=== PATIENT | male | born 1950 | race Caucasian/White ===

== ENCOUNTER 2023-02-17 11:06 | Day surgery (SDC) | payer MEDICARE, SELFPAY ==
[2023-02-17] VITALS (8 sets, daily range): BP systolic 130–193; BP diastolic 68–95; PULSE 69–95; RESP 16–20; TEMP 36.9; O2SAT 95–100; BMI 22.2
--- NOTE | 2023-02-17 | HP_ITS ---
Date:? 02/17/2023 CHIEF COMPLAINT:? Food impaction. HISTORY OF PRESENT ILLNESS:? Patient is a 72-year-old male presented to the emergency room this morning with a food impaction that began at 9:00 p.m. last night.? He was eating chicken and it got lodged in his lower esophagus.? He has been able to swallow some saliva but no liquids or food since that time.? Denies any shortness of breath.? Does have a history of a similar episode several years ago, but he was able to bring the food up at that time.? He has had a remote EGD and reportedly had a hiatal hernia.? He has had several colonoscopies that have been unremarkable as well.? Denies any abdominal surgery other than inguinal hernia repair.? He denies aspirin or nonsteroidal anti-inflammatory drug use.? SOCIAL HISTORY:? He does not smoke.? Denies alcohol or illicit drug use.? ALLERGIES:? He has no known drug allergies.? MEDICATIONS:? He does report that he takes anti-anxiety medication, Ativan p.r.n., as well as metoprolol.? REVIEW OF SYSTEMS:? Ten system review of systems is negative for recent weight loss or weight gain.? Denies increased fatigue or light-headedness.? Has had no earache or tinnitus.? No sinus congestion.? No sore throat or hoarseness.? No chest pain, palpitations or syncope.? No chronic cough, shortness of breath, hemoptysis.? No abdominal pain, nausea and vomiting.? No diarrhea, constipation, decreased caliber of the stools.? No melena, hematochezia or bright red blood per rectum.? No dysuria, frequency, urgency or hematuria.? No headaches, seizures or tremors.? No easy bruising or bleeding.? No heat or cold intolerance.? No polydipsia, polyphagia or polyuria. PHYSICAL EXAM:? VITAL SIGNS:? Patient is afebrile.? Vital signs are stable. HEENT:? Normocephalic, atraumatic.? Sclerae anicteric.? Conjunctiva not injected.? Oral mucosa is moist without lesions. NECK:? Supple.? There is no adenopathy, thyromegaly or JVD. LUNGS:? Clear bilaterally.? CARDIAC EXAM:? Regular rhythm and rate without appreciable murmurs, rubs or gallops. ABDOMEN:? Soft, non-tender, non-distended.? There are masses, hepatosplenomegaly or hernias.? No CVA tenderness.? SKIN:? Warm and dry without lesions, rashes or ulcers. NEURO EXAM:? Non-focal.? Non-lateralizing.? LABORATORY VALUES:? Within normal limits. IMAGING:? Patient did have a CT scan of the neck and chest by the emergency room which revealed a food bolus in the distal esophagus.? No inflammatory changes or perforation. ASSESSMENT:? A 72-year-old with distal esophageal food bolus.? PLAN:? The plan is to proceed with EGD under general anesthesia with removal and/or reduction of the food bolus.? Indications, risks, benefits, alternatives of proceeding were explained extensively to the patient, including the risks of bleeding, aspiration, esophageal/gastric perforation or anesthetic complications.? All of his questions were answered.? Informed consent was obtained. CC:? Bella Sierra
--- NOTE | 2023-02-17 | OP_ITS ---
OPERATION DATE: ??02/17/2023 PREOPERATIVE DIAGNOSIS:? Food impaction. POSTOPERATIVE DIAGNOSIS:? Food impaction with distal esophageal impaction of chicken. PROCEDURE:? EGD with removal and reduction of food bolus. SURGEON:? Torito Zimmerman M.D. ANESTHESIA:? General endotracheal per Dr. Hastings. ESTIMATED BLOOD LOSS: Zero. INDICATIONS AND CONSENT:? Patient is a 72-year-old male with a food impaction in the distal esophagus since 9:00 p.m. last night, which was confirmed by the emergency room with CT scan.? Indications, risks, benefits, alternatives of proceeding with EGD under general anesthesia were explained extensively to the patient, including the risks of bleeding, aspiration, esophageal/gastric perforation or anesthetic complications.? All of his questions were answered.? Informed consent was obtained. PROCEDURE:? Patient was brought to the operating room, placed in the supine position.? General anesthesia was induced.? He was then placed in the left lateral decubitus position.? Bite block was placed in the patient?s mouth.? Scope was inserted into the oropharynx.? Under direct visualization, it was advanced into the esophagus, past the cricopharyngeus, down to the distal esophagus, where a large piece of chicken was found to be obstructing the distal esophagus.? This was unable to be reduced.? Biopsy forceps were used to break up pieces and remove some of the pieces.? Larger chunks that were made mobile were then removed with the [employer].? Once it had been adequately broken up, it was able to be irrigated down into the stomach.? There was noted to be a tortuous distal esophagus with a bend as well as spasm and edema and some esophagitis.? There was no bleeding.? There was a small, sliding type hiatal hernia.? The remainder of the esophagus was unremarkable.? Some small pieces of chicken that had been brought out into the oropharynx were removed as well, after the scope was removed.? Patient tolerated procedure well, was extubated and sent to recovery room in good condition. CC:? Bella Sierra
[2023-02-17] MEDS: GLUCAGON 1 MG/ML VIAL IV (11:30)
--- NOTE | 2023-02-17 11:44 | ED_ITS ---
HPI - General Adult General Chief complaint: Abdominal Pain Stated complaint: FOOD CAUGHT IN THROAT Time Seen by Provider: 02/17/23 11:18 Source: patient Mode of arrival: walk-in Limitations: no limitations History of Present Illness HPI narrative: The patient is coming to the ER with a an incidental food impaction in his lower part of the esophagus and he mentioned that the food seems is stuck in his chest area The patient denies any difficulty breathing or any difficulty speaking and this incident happened yesterday at 9 PM he is presenting today around 11 AM The patient is not able to drink any water since then and he mentioned that it was a piece of chicken with no bone and it The patient had 1 incident few years ago when he had to have the Heimlich maneuver after a choking incident The patient denies any other complaints Related Data Allergies Allergy/AdvReac Type Severity Reaction Status Date / Time No Known Drug Allergies Allergy Verified 02/17/23 11:17 Review of Systems ROS Status of ROS 10 or more systems reviewed and unremarkable except as noted in history and below PFSH PFS Social History Smoking status: Never smoker Exam Narrative Exam Narrative: Nurses notes and vital signs reviewed and patient is not hypoxic. General: Well-appearing and in no apparent distress. Skin: Warm, dry, no pallor noted. No rash. Head: Normocephalic, atraumatic. Neck: Supple, non-tender. Eye: Pupils are equal, round and EOMI. No scleral icterus. Ears, Nose, Mouth, and Throat: TM are clear, no nasal mucosal hypertrophy. Oral mucosa is moist, no posterior oropharynx erythema, uvula is mid-line Cardiovascular: Regular Rate and Rhythm without murmur, gallop or rub. Respiratory: No accessory muscle use or respiratory distress. Lungs are clear to auscultation, no wheezing, rales or rhonchi Chest Wall: no tenderness Back: No midline thoracic or lumbar vertebral tenderness. No CVA tenderness Musculoskeletal: normal ROM, no calf or popliteal tenderness, no lower extremity edema/swelling GI: Abdomen is soft, non-distended. Normal bowel sounds. No masses appreciated. No tenderness to palpation. No rebound, guarding, or rigidity noted. Neurological: A&O x4. No cranial nerve dysfunction observed. No truncal ataxia. Moves all extremities. Sensation intact. Psychiatric: Cooperative and interactive. Normal mood and affect. Constitutional Vital Signs, click to edit/add: Last Vital Signs Temp 98.5 F 02/17/23 11:13 Pulse 84 02/17/23 15:10 Resp 16 02/17/23 15:10 BP 130/68 02/17/23 15:10 Pulse Ox 97 02/17/23 15:10 O2 Del Method Room Air 02/17/23 11:13 Course Vital Signs Vital signs: Vital Signs Temperature 98.5 F 02/17/23 11:13 Pulse Rate 95 H 02/17/23 11:13 Respiratory Rate 18 02/17/23 11:13 Blood Pressure 150/82 H 02/17/23 11:13 Pulse Oximetry 99 02/17/23 11:13 Oxygen Delivery Method Room Air 02/17/23 11:13 Temperature 98.5 F 02/17/23 11:13 Pulse Rate 84 02/17/23 15:10 Respiratory Rate 16 02/17/23 15:10 Blood Pressure 130/68 02/17/23 15:10 Pulse Oximetry 97 02/17/23 15:10 Oxygen Delivery Method Room Air 02/17/23 11:13 Medical Decision Making MDM Narrative Medical decision making narrative: The patient EKG showing sinus rhythm with a heart rate of [address] elevation or depression CBC and chemistry within normal The patient refused to have contrast although I did explain to him the benefit of the contrast for visualization of the foreign body but he was adamant and I did not respect that and I got a CAT scan without contrast CT of the neck showed no acute pathology and the CT of the chest shows food impaction at the mid thoracic esophagus The patient case was discussed with Dr. Zimmerman , the patient will be kept n.p.o. and general anesthesia were called to do a bedside procedure The patient right now will be taken to the 1 day surgery and he will be discharged after evaluation by the general surgery Lab Data Labs: Lab Results 02/17/23 Range/Units 11:38 WBC 5.2 (4.0-11.0) 10^3/uL RBC 5.08 (4.70-6.10) 10^6/uL Hgb 16.0 (14.0-18.0) g/dL Hct 47.6 (42.0-54.0) % MCV 93.7 (80.0-94.0) fL MCH 31.5 (25.9-34.0) pg MCHC 33.6 (29.9-35.2) g/dL RDW 12.5 (11.0-15.0) % Plt Count 203 (150-450) 10^3/uL MPV 11.0 (9.5-13.5) fL Neut % (Auto) 45.0 (43.0-75.0) % Lymph % (Auto) 39.3 (20.5-60.0) % [place] % (Auto) 12.6 H (1.7-12.0) % Eos % (Auto) 1.5 (0.9-7.0) % Baso % (Auto) 1.4 (0.2-2.0) % Neut # (Auto) 2.3 (1.4-6.5) 10^3/uL Lymph # (Auto) 2.0 (1.2-3.8) 10^3/uL [place] # (Auto) 0.7 (0.3-0.8) 10^3/uL Eos # (Auto) 0.1 (0.0-0.7) 10^3/uL Baso # (Auto) 0.1 (0.0-0.1) 10^3/uL Abs Immat Gran (auto) 0.01 (0.00-0.03) 10^3/uL Imm/Tot Granulo (auto) 0.2 (0.0-0.5) % Sodium 139 (136-145) mmol/L Potassium 4.1 (3.5-5.1) mmol/L Chloride 101 (98-107) mmol/L Carbon Dioxide 29.0 (21.0-32.0) mmol/L Anion Gap 13.1 BUN 10.0 (7.0-18.0) mg/dL Creatinine 1.01 (0.70-1.30) mg/dL Est GFR ( Amer) >60 (>=60) Est GFR (Non-Af Amer) >60 (>=60) BUN/Creatinine Ratio 9.9 Glucose 132 H (74-106) mg/dL Calcium 9.2 (8.5-10.1) mg/dL Total Bilirubin 0.7 (0.2-1.0) mg/dL AST 27 (15-37) U/L ALT 31 (16-63) U/L Alkaline Phosphatase 76 (46-116) U/L Total Protein 8.3 H (6.4-8.2) g/dL Albumin 4.1 (3.4-5.0) g/dL Globulin 4.2 g/dL Albumin/Globulin Ratio 1.0 Discharge Plan Discharge Chief Complaint: Abdominal Pain Clinical Impression: Food impaction of esophagus Time of Disposition Decision: 15:56
[2023-02-17 11:58] LABS: Basophils Absolute Auto 0.1 10^3/uL (0.0-0.1); Basophils Percent Auto 1.4 % (0.2-2.0); Eosinophils Absolute Auto 0.1 10^3/uL (0.0-0.7); Eosinophils Percent Auto 1.5 % (0.9-7.0); Hematocrit 47.6 % (42.0-54.0); Immature Granulocytes Abs Auto 0.01 10^3/uL (0.00-0.03); Immature Granulocytes Pct Auto 0.2 % (0.0-0.5); Lymphocytes Percent Auto 39.3 % (20.5-60.0); Mean Corpuscular HGB Conc 33.6 g/dL (29.9-35.2); Mean Corpuscular Hemoglobin 31.5 pg (25.9-34.0); Mean Corpuscular Volume 93.7 fL (80.0-94.0); Monocytes Absolute Auto 0.7 10^3/uL (0.3-0.8); Monocytes Percent Auto 12.6 % (1.7-12.0); Neutrophils Absolute Auto 2.3 10^3/uL (1.4-6.5); Platelet Count 203 10^3/uL (150-450); Red Blood Count 5.08 10^6/uL (4.70-6.10); Red Cell Distribution Width 12.5 % (11.0-15.0); White Blood Count 5.2 10^3/uL (4.0-11.0)
[2023-02-17 12:03] LABS: Alanine Aminotransferase 31 U/L (16-63); Albumin Level 4.1 g/dL (3.4-5.0); Alkaline Phosphatase 76 U/L (46-116); Anion Gap 13.1; Aspartate Amino Transferase 27 U/L (15-37); BUN Creatinine Ratio 9.9; Bilirubin Total 0.7 mg/dL (0.2-1.0); Calcium 9.2 mg/dL (8.5-10.1); Chloride 101 mmol/L (98-107); Estimated GFR (African America >60 (>=60); Estimated GFR (Non-African Ame >60 (>=60); Globulin 4.2 g/dL; Glucose 132 mg/dL (74-106); Potassium 4.1 mmol/L (3.5-5.1); Sodium 139 mmol/L (136-145); Total Protein 8.3 g/dL (6.4-8.2)
--- NOTE | 2023-02-17 12:12 | CT_ITS ---
The [address] [address] Patient Name: HUBERT GREENWOOD MRN: [id number] date: 1950 Sex: M Assigned Patient Location: ER Current Patient Location: Accession/Order Number: [id number] Exam Date: 02/17/2023 12:45 Report Date: 02/17/2023 13:41 At the request of: JORGE MEDINA Procedure: CT soft tissue neck wo con EXAM: CT soft tissue neck wo con HISTORY: food impaction COMPARISON: CT chest performed contemporaneously reported separately.. TECHNIQUE: Axial noncontrast CT imaging of the neck soft tissues was performed with coronal and sagittal reformats. This CT exam was performed using one or more of the following dose reduction techniques: Automated exposure control, adjustment of the MA and/or kV according to patient size, or use of iterative reconstruction technique. FINDINGS: Skull base/intracranial: The visualized portions of the intracranial structures are otherwise unremarkable. Paranasal sinuses are clear. Mastoid and middle ears are well aerated. Visualized portions of the orbits are unremarkable. Neck soft tissues: No radiopaque foreign body is present within the visualized neck airway upper thoracic esophagus or trachea. Evaluation of the oral cavity and facial soft tissues is degraded by streak artifact from dental amalgam. [The right palatine tonsilloliths are present. No mass. The oropharynx, hypopharynx and glottis otherwise demonstrate no significant abnormality. The submandibular glands and parotid glands demonstrate normal CT appearance. The thyroid demonstrates normal CT appearance. Lymph nodes: No enlarged or morphologically abnormal neck lymph nodes are identified. Vasculature: Atherosclerotic calcification of the bilateral carotid bulbs and proximal internal carotid arteries. Musculoskeletal: Multilevel mild degenerative changes of the cervical spine. No significant spinal canal narrowing. No destructive osseous lesions are identified. CT/CT soft tissue neck wo con IMPRESSION: 1. No evidence for retained food bolus within the [id number]. No substantial soft tissue abnormality involving the neck soft tissues. 2. For thoracic findings please note the dedicated CT chest performed contemporaneously reported separately. Electronically authenticated by: CLIFF MCLEAN Date: 02/17/2023 13:41
--- NOTE | 2023-02-17 12:12 | CT_ITS ---
The [address] [address] Patient Name: HUBERT GREENWOOD MRN: [id number] date: 1950 Sex: M Assigned Patient Location: ER Current Patient Location: ER Accession/Order Number: [id number] Exam Date: 02/17/2023 12:45 Report Date: 02/17/2023 13:44 At the request of: JORGE MEDINA Procedure: CT chest wo con CT chest wo con CLINICAL HISTORY: food impaction COMPARISON: None Available. CT CHEST TECHNIQUE: Noncontrast axial CT images obtained from lung apices through lung bases. Coronal and sagittal reconstructions performed. Dose reduction techniques were achieved by using automated exposure control and/or adjustment of mA and/or kV according to patient size and/or use of iterative reconstruction technique. CT CHEST FINDINGS: Lower thyroid unremarkable. Slight bilateral gynecomastia. No axillary adenopathy. Thoracic spondylosis without acute bony process. Normal heart and great vessel sizes. Coronary artery calcifications. No pericardial effusion. Subcentimeter mediastinal nodes without adenopathy. At the level of the distal thoracic esophagus there is probable impacted food bolus identified measuring up to approximately 19 x 17 mm greatest axial and extending over approximately 3 cm craniocaudal. There is trace to small upstream mild air fluid distention. No mediastinal gas/pneumomediastinum or fluid. Visualized upper abdomen grossly unremarkable. No significant hiatal hernia. Lungs are well-expanded and clear except for minimal scarring. No evidence of aspiration or other acute airspace opacities. No pleural effusion or pneumothorax. CT/CT chest wo con IMPRESSION: Impacted food bolus at the level of the distal thoracic esophagus with slight upstream fluid distention. No pneumomediastinum or free fluid. Lungs are clear. Electronically authenticated by: ELIJAH KIM Date: 02/17/2023 13:44
--- NOTE | 2023-02-17 14:06 | ECG_ITS ---
The [facility] Test Date: 2023-02-17 Pat Name: HUBERT GREENWOOD Department: Room: - Gender: Male Pipe [employer]: : 1950 Requested By: [id number] Order Number: [id number] Reading MD: JACK SIMONS Measurements Intervals [place] Rate: 77 P: 76 [place]: 146 QRS: 67 QRSD: 84 T: 59 QT: 348 QTc: 380 Interpretive Statements 1100 Sinus rhythm 1970 with occasional ectopic premature complexes 9140 abnormal rhythm ECG No previous ECG available for comparison Electronically Signed On 02-18-2023 6:12:21 EDT by JACK SIMONS
[2023-02-17] MEDS: LACTATED RINGER'S SOLUTION 1,000 ML 50 ML IV (15:38)
--- NOTE | 2023-02-17 16:57 | PC.NURSE ---
1642- Received from OR. Patient arouseable to name. Respirations even and non-labored on room air. Monitor displays NSR. VSS. Dr. Hastings aware of BP. No new orders received. Patient c/o sore throat. Refuses anything to drink at present time. 1657- Patient A/O x3 . VSS. Respirations even and nonlabored on room air. Monitor continues to display NSR. Patient tolerating sips of water well. Patient states throat is scratchy but refuses anything for pain. VSS.
--- NOTE | 2023-02-17 17:52 | PC.NURSE ---
1740- IV discontinued from [facility] without difficulty. Patient tolerated it well.
== END 2023-02-17 17:43 | disposition home or self-care (01) ==
LOC: ER 15:16 → SURGOUT 15:40
PROVIDERS: Emergency Provider Emergency Medicine; PCP Internal Medicine; Visit Provider Surgery
PROC: (CPT 43247; principal; 2023-02-17 16:00)
DX: T18.128A Food in esophagus causing other injury, initial encounter (principal)
CPT/HCPCS: 43247; 36415; 70490; 71250; 80053; 85025; 93005; 96374; 99285; J1610; J2704